=== PATIENT | female | born 1970 | race Caucasian/White ===

== ENCOUNTER 2017-11-18 06:23 | Emergency (ER) | payer BC ==
[2017-11-18] MEDS ORDERED: Sodium Chloride 0.9% 1,000 ML IV ONE (07:06)
[2017-11-18] MEDS ORDERED: Sodium Chloride 0.9% 1,000 ML ONE (07:18)
[2017-11-18 07:30] LABS: BASO % 0.3 % (0.0-2.0); EOS % 0.1 % (0.0-4.0); HEMATOCRIT 36.9 % (34.0-47.0); LYMPH # 1.4 K/uL (1.0-4.3); LYMPH % 13.5 % (20.0-40.0); MEAN CELL VOLUME 83.6 fL (81.0-99.0); MEAN CORPUSCULAR HEMOGLOBIN 28.4 pg (27.0-31.0); MEAN CORPUSCULAR HGB CONC 33.9 g/dL (33.0-37.0); MEAN PLATELET VOLUME 11.2 fL (7.2-11.7); MONO # 0.7 K/uL (0.0-0.8); MONO % 6.2 % (0.0-10.0); RED CELL DISTRIBUTION WIDTH 14.8 % (11.5-14.5); WHITE BLOOD COUNT 10.7 K/uL (4.8-10.8)
--- NOTE | 2017-11-18 07:34 | C.PDOC ---
History Of Present Illness 46 y/o female presents to ED with complaints of generalized abdominal pain since 11pm last night with associated vomiting and diarrhea. Patient states she took over the counter medication and Zantac with no relief. At ED patient reports vomiting resolved but abdominal pain and diarrhea is persistent. Abdominal pain is mild and dull. Patient denies fever, sick contacts, bloody stool, back pain or any other complaints at this time. Time Seen by Provider: 11/18/17 06:59 Chief Complaint (Nursing): Abdominal Pain History Per: Patient History/Exam Limitations: no limitations Onset/Duration Of Symptoms: Days Current Symptoms Are (Timing): Still Present Location Of Pain/Discomfort: Diffuse Past Medical History Reviewed: Historical Data, Nursing Documentation, Vital Signs Vital Signs: Last Vital Signs Temp 98.5 F 11/18/17 08:52 Pulse 77 11/18/17 08:52 Resp 16 11/18/17 08:52 BP 96/58 L 11/18/17 08:52 Pulse Ox 97 11/18/17 10:34 - Medical History PMH: Hypercholesterolemia, Migraine Surgical History: No Surg Hx - [facility] Procedures PERCUTAN NEEDLE BIOPSY OF BREAST (04/11/14) Family History: States: No Known Family Hx - Social History Hx Tobacco Use: No Hx Alcohol Use: Yes Hx Substance Use: No - Immunization History Hx Tetanus Toxoid Vaccination: Yes Hx Influenza Vaccination: Yes Hx Pneumococcal Vaccination: No Review Of Systems Constitutional: Negative for: Fever, Chills Gastrointestinal: Positive for: Vomiting, Abdominal Pain, Diarrhea. Negative for: Hematochezia, Hematemesis Musculoskeletal: Negative for: Back Pain Skin: Negative for: Rash Physical Exam - Physical Exam Appears: Non-toxic, No Acute Distress Skin: Warm, Dry, No Rash Head: Atraumatic, Normacephalic Eye(s): bilateral: Normal Inspection Oral Mucosa: Moist Neck: Supple Cardiovascular: Rhythm Regular Respiratory: Normal Breath Sounds, No Accessory Muscle Use, No Rales, No Rhonchi , No Wheezing Gastrointestinal/Abdominal: Bowel Sounds, Soft, Tenderness (Diffuse), No Mass, No Distention, No Guarding, No Rebound, No Hernia, No Ascites Back: No CVA Tenderness Extremity: Bilateral: Atraumatic, Normal Color And Temperature, Normal ROM Neurological/Psych: Oriented x3, Normal Speech Gait: Steady ED Course And Treatment - Laboratory Results Result Diagrams: 11/18/17 07:10 11/18/17 07:10 Lab Interpretation: No Acute Changes O2 Sat by Pulse Oximetry: 97 (RA) Pulse Ox Interpretation: Normal Medical Decision Making Medical Decision Making: Impression: vomiting, diarrhea, abdominal pain Plan: * Pepcid, Zofran, Toradol, UA * Blood work * Obstructive series Progress: Labs reviewed and unremarkable Obstructive series reviewed and shows normal gas pattern and no obstruction. Re-Eval time: 0846 Patient reports feeling better. IV fluids have completed. She states nausea has resolved and abdominal pain improved. Abdomen is soft without guarding or rebound tenderness. Patient has no fever and is stable for discharge. Patient given follow up instructions. Instructed to return to ER if symptoms worsen or new symptoms arise. Disposition Counseled Patient/Family Regarding: Diagnosis, Need For Followup, Rx Given - Disposition Referrals: Ranulfo Ernst MD [Medical Doctor] - Disposition: HOME/ ROUTINE Disposition Time: 08:47 Condition: STABLE Additional Instructions: Drink fluids to prevent dehydration. Take Zofran as prescribed. Try low-fat diet with increase in fluids such as sport drink, gelatin. Try soup, rice, bread , crackers, cereal, bananas to help with diarrhea. Avoid high sugar foods or drinks (soda and juice), fatty foods Follow up with your primary medical doctor or clinic in 2-5 days for further evaluation. Take medications as prescribed. Return to the emergency department at any time if symptoms persist or worsen. Prescriptions: Dicyclomine [Bentyl] 10 mg PO QID #20 cap Ondansetron ODT [Zofran ODT] 1 odt PO BID PRN #6 odt PRN Reason: Nausea/Vomiting Pantoprazole Sodium [Protonix] 20 mg PO DAILY #20 ect Instructions: Gastroenteritis (DC) Forms: [employer] (Martiniquais) Print Language: GU[place]EMALAN - POA Present On Arrival: None - Clinical Impression Clinical Impression: Gastroenteritis - PA / PROCESSING CLERK / Resident Statement MD/DO has reviewed & agrees with the documentation as recorded. - Scribe Statement The provider has reviewed the documentation as recorded by the Kelleeibyaima Lam All medical record entries made by the Kelleeibyaima were at my direction and personally dictated by me. I have reviewed the chart and agree that the record accurately reflects my personal performance of the history, physical exam, medical decision making, and the department course for this patient. I have also personally directed, reviewed, and agree with the discharge instructions and disposition.
[2017-11-18 07:35] LABS: RBC URINE 1 /hpf (0-3); URINE BACTERIA RARE (<OCC); URINE BILIRUBIN NEGATIVE (NEGATIVE); URINE BLOOD NEGATIVE (NEGATIVE); URINE COLOR Yellow (YELLOW); URINE GLUCOSE (UA) NORMAL (Normal); URINE KETONE NEGATIVE (NEGATIVE); URINE LEUKOCYTE ESTERASE NEG Leu/uL (Negative); URINE PROTEIN NEGATIVE (NEGATIVE); URINE UROBILINOGEN NORMAL mg/dL (0.2-1.0); WBC URINE 2 /hpf (0-5)
[2017-11-18 08:20] LABS: ALKALINE PHOSPHATASE 77 U/L (38-126); ALT/SGPT 29 U/L (9-52); AST/SGOT 33 U/L (14-36); BILIRUBIN,TOTAL 0.5 mg/dL (0.2-1.3); BLOOD UREA NITROGEN 17 mg/dL (7-17); CALCIUM 8.7 mg/dl (8.6-10.4); CARBON DIOXIDE 27 mmol/L (22-30); CHLORIDE 99 mmol/L (98-107); GFR AFRICAN-AMERICAN > 60; GLUCOSE,RANDOM 128 mg/dL (65-105); POTASSIUM 3.9 mmol/L (3.6-5.2); SODIUM 133 mmol/L (132-148); TOTAL PROTEIN 8.6 g/dL (6.3-8.3)
[2017-11-18 08:52] VITALS: BP 96/58; PULSE 77; RESP 16; TEMP 98.5
[2017-11-18 10:34] VITALS: O2SAT 97
--- NOTE | 2017-11-18 11:22 | RAD ---
PROCEDURE: Radiographs of the chest and abdomen (obstructive series) HISTORY: Abdominal pain, vomiting and diarrhea COMPARISON: No prior. TECHNIQUE: AP radiograph of the chest, with upright and supine radiographs of the abdomen. FINDINGS: CHEST: Lungs: The lungs are well inflated and clear. Cardiovascular: Normal size heart. No pulmonary vascular congestion. Pleura: No pleural fluid. No pneumothorax. Other findings: None. ABDOMEN AND PELVIS: Bowel: The bowel gas pattern is nonspecific. There are no air-fluid levels. No evidence of mechanical obstruction. Free air: None. Bones: Unremarkable. Other findings: None. IMPRESSION: Nonobstructive bowel-gas pattern. Clear lungs.
== END 2017-11-18 09:12 | disposition home or self-care (01) ==
LOC: C.ER 06:23
DX: K52.9 Noninfective gastroenteritis and colitis, unspecified (principal); E78.00 Pure hypercholesterolemia, unspecified
CPT/HCPCS: 74022; 80053; 81001; 83690; 84703; 85025; 87086; 96361; 96374; 96375; 99285; J1885; J2405; J7040

== ENCOUNTER 2018-05-17 00:15 | Inpatient (IN) | payer BC, MEDICAID ==
[2018-05-17] MEDS ORDERED: Sodium Chloride 0.9% 500 ML IV ONE ×2 (01:04→01:23)
[2018-05-17] MEDS ORDERED: Sodium Chloride 0.9% 1,000 ML IV ONE (01:04)
[2018-05-17] MEDS ORDERED: Iohexol 240 (50 ml) PO ONE (01:05)
--- NOTE | 2018-05-17 01:07 | C.PDOC ---
History Of Present Illness 47 year old female presents to the ER with a complaint of abdominal pain that began at 20:00, associated with diarrhea. Denies nausea, vomiting, dysuria, or hematuria. Chief Complaint (Nursing): Abdominal Pain History Per: Patient History/Exam Limitations: no limitations Onset/Duration Of Symptoms: Hrs Current Symptoms Are (Timing): Still Present Location Of Pain/Discomfort: RUQ, RLQ, LUQ Radiation Of Pain To:: None Quality Of Discomfort: Unable To Describe Associated Symptoms: Diarrhea. denies: Nausea, Vomiting Exacerbating Factors: None Alleviating Factors: None Recent travel outside of the [place]: No Abnormal Vaginal Bleeding: No Past Medical History Reviewed: Historical Data, Nursing Documentation, Vital Signs Vital Signs: Last Vital Signs Temp 97.8 F 05/17/18 05:21 Pulse 91 H 05/17/18 05:21 Resp 16 05/17/18 05:21 BP 149/86 05/17/18 05:21 Pulse Ox 99 05/17/18 05:23 - Medical History PMH: Hypercholesterolemia, Migraine - [facility] Procedures PERCUTAN NEEDLE BIOPSY OF BREAST (04/11/14) Family History: States: Unknown Family Hx - Social History Hx Tobacco Use: No Hx Alcohol Use: Yes Hx Substance Use: No - Immunization History Hx Tetanus Toxoid Vaccination: Yes Hx Influenza Vaccination: Yes Hx Pneumococcal Vaccination: No Review Of Systems Constitutional: Negative for: Fever, Chills Cardiovascular: Negative for: Chest Pain, Palpitations Respiratory: Negative for: Cough, Shortness of Breath Gastrointestinal: Positive for: Abdominal Pain, Diarrhea. Negative for: Nausea , Vomiting Genitourinary: Negative for: Dysuria, Hematuria Physical Exam - Physical Exam Appears: Non-toxic Skin: Normal Color, Warm, Dry Head: Atraumatic, Normacephalic Eye(s): bilateral: Normal Inspection Oral Mucosa: Moist Neck: Normal, Supple Chest: Symmetrical, No Tenderness Cardiovascular: Rhythm Regular Respiratory: Normal Breath Sounds, No Rales, No Rhonchi, No Wheezing Gastrointestinal/Abdominal: Soft, Tenderness (Bilateral upper quadrants and RLQ) , No Guarding, No Rebound Back: No CVA Tenderness Neurological/Psych: Oriented x3, Normal Speech ED Course And Treatment - Laboratory Results Result Diagrams: 05/17/18 01:17 05/17/18 01:17 O2 Sat by Pulse Oximetry: 99 (Room air) Pulse Ox Interpretation: Normal Progress Note: CT abd/pel, blood work, and urinalysis ordered. Bentyl, IV fluids , and toradol administered. NG tube inserted. Disposition Discussed With : Sanjeev Deras Doctor Will See Patient In The: Hospital Counseled Patient/Family Regarding: Diagnosis - Disposition Disposition: HOSPITALIZED Disposition Time: 05:16 Condition: STABLE - POA Present On Arrival: None - Clinical Impression Clinical Impression: Abdominal pain, Small bowel obstruction - Scribe Statement The provider has reviewed the documentation as recorded by the Scribyaima Aguilar All medical record entries made by the Kelleeibyaima were at my direction and personally dictated by me. I have reviewed the chart and agree that the record accurately reflects my personal performance of the history, physical exam, medical decision making, and the department course for this patient. I have also personally directed, reviewed, and agree with the discharge instructions and disposition.
[2018-05-17 01:24] LABS: BASO % 0.4 % (0.0-2.0); EOS % 0.3 % (0.0-4.0); HEMOGLOBIN 12.3 g/dL (11.0-16.0); LYMPH # 1.8 K/uL (1.0-4.3); LYMPH % 15.5 % (20.0-40.0); MEAN CELL VOLUME 82.6 fL (81.0-99.0); MEAN CORPUSCULAR HEMOGLOBIN 27.4 pg (27.0-31.0); MEAN CORPUSCULAR HGB CONC 33.2 g/dL (33.0-37.0); MEAN PLATELET VOLUME 10.5 fL (7.2-11.7); MONO # 0.5 K/uL (0.0-0.8); MONO % 4.7 % (0.0-10.0); NEUT # 9.1 K/uL (1.8-7.0); NEUT % 79.1 % (50.0-75.0); RBC 4.48 Mil/uL (3.80-5.20); RED CELL DISTRIBUTION WIDTH 15.4 % (11.5-14.5); WHITE BLOOD COUNT 11.5 K/uL (4.8-10.8)
[2018-05-17 01:33] LABS: ALB/GLOB RATIO 1.4 (1.0-2.1); ALBUMIN 4.5 g/dL (3.5-5.0); ALT/SGPT 35 U/L (9-52); AST/SGOT 21 U/L (14-36); BLOOD UREA NITROGEN 14 mg/dL (7-17); CALCIUM 9.2 mg/dl (8.6-10.4); GFR AFRICAN-AMERICAN > 60; GFR NON-AFRICAN AMERICAN > 60; LIPASE 104 U/L (23-300)
[2018-05-17 01:37] LABS: SQUAMOUS EPITHIAL 1 /hpf (0-5); URINE BILIRUBIN NEGATIVE (NEGATIVE); URINE BLOOD NEGATIVE (NEGATIVE); URINE CLARITY Clear (Clear); URINE COLOR Yellow (YELLOW); URINE GLUCOSE (UA) NORMAL (Normal); URINE LEUKOCYTE ESTERASE NEG Leu/uL (Negative); URINE PROTEIN NEGATIVE (NEGATIVE); URINE UROBILINOGEN NORMAL mg/dL (0.2-1.0)
[2018-05-17] MEDS ORDERED: Iodixanol 320 MG/ML 100 ML BOTTLE IV ONE (02:46)
--- NOTE | 2018-05-17 05:23 | CP.PCM.HP ---
<Rolando Harper Elsa - Last Filed: 05/17/18 06:16> Meds Allergies/Adverse Reactions: Allergies Allergy/AdvReac Type Severity Reaction Status Date / Time No Known Allergies Allergy Verified 11/18/17 06:40 Results - Vital Signs Recent Vital Signs: Last Vital Signs Temp 97.8 F 05/17/18 05:21 Pulse 91 H 05/17/18 05:21 Resp 16 05/17/18 05:21 BP 149/86 05/17/18 05:21 Pulse Ox 99 05/17/18 06:01 - Labs Result Diagrams: 05/17/18 01:17 05/17/18 01:17 Labs: Laboratory Results - last 24 hr 05/17/18 05/17/18 05/17/18 01:17 01:17 01:30 WBC 11.5 H RBC 4.48 Hgb 12.3 Hct 37.0 MCV 82.6 MCH 27.4 MCHC 33.2 RDW 15.4 H Plt Count 220 MPV 10.5 Neut % (Auto) 79.1 H Lymph % (Auto) 15.5 L [place] % (Auto) 4.7 Eos % (Auto) 0.3 Baso % (Auto) 0.4 Neut # (Auto) 9.1 H Lymph # (Auto) 1.8 [place] # (Auto) 0.5 Eos # (Auto) 0.0 Baso # (Auto) 0.0 Sodium 139 Potassium 4.3 Chloride 103 Carbon Dioxide 21 L Anion Gap 19 BUN 14 Creatinine 0.7 Est GFR ( Amer) > 60 Est GFR (Non-Af Amer) > 60 POC Glucose (mg/dL) Random Glucose 116 H Calcium 9.2 Total Bilirubin 0.7 AST 21 ALT 35 Alkaline Phosphatase 76 Total Protein 7.8 Albumin 4.5 Globulin 3.3 Albumin/Globulin Ratio 1.4 Lipase 104 Urine Color Yellow Urine Clarity Clear Urine pH 5.0 Ur Specific [place] 1.023 Urine Protein Negative Urine Glucose (UA) Normal Urine Ketones Negative Urine Blood Negative Urine Nitrate Negative Urine Bilirubin Negative Urine Urobilinogen Normal Ur Leukocyte Esterase Neg Urine WBC (Auto) < 1 Urine RBC (Auto) < 1 Ur Squamous Epith Cells 1 05/17/18 05:55 WBC RBC Hgb Hct MCV MCH MCHC RDW Plt Count MPV Neut % (Auto) Lymph % (Auto) [place] % (Auto) Eos % (Auto) Baso % (Auto) Neut # (Auto) Lymph # (Auto) [place] # (Auto) Eos # (Auto) Baso # (Auto) Sodium Potassium Chloride Carbon Dioxide Anion Gap BUN Creatinine Est GFR ( Amer) Est GFR (Non-Af Amer) POC Glucose (mg/dL) 112 H Random Glucose Calcium Total Bilirubin AST ALT Alkaline Phosphatase Total Protein Albumin Globulin Albumin/Globulin Ratio Lipase Urine Color Urine Clarity Urine pH Ur Specific [place] Urine Protein Urine Glucose (UA) Urine Ketones Urine Blood Urine Nitrate Urine Bilirubin Urine Urobilinogen Ur Leukocyte Esterase Urine WBC (Auto) Urine RBC (Auto) Ur Squamous Epith Cells <Mari HuitronAna Paula - Last Filed: 05/17/18 07:09> History of Present Illness - History of Present Illness History of Present Illness: CC: "lower abdominal pain" HPI: 47 year old female with past medical history of pre-diabetes and HLD presents to the ER for lower abdominal pain. She states the pain started yesterday around 8pm while she was cleaning her bathroom. She stated the pain felt like a cramping pain which would come and go. She states she drank water with lemon and a tablet of penicillin hoping the pain would go away. She states when the pain would not leave and became more severe she decided to come to the ER which she was brought in by her . Patient states she had about 4 small episodes of diarrhea yesterday evening the last one being at 11pm. She states the stool was liquid and yellow/green in color and very small amounts. She states the last time she ate anything was yesterday around 3:45pm which was rice/avocado/broccoli. She states she has never had pain like this before. Patient states she is belching but is not passing flatus. She denies nausea, vomiting, chills, fever, shortness of breath or chest pain. Patient states she has had a colonoscopy in the past about 10 years ago due to constipation and external hemorrhoids were found otherwise colonoscopy was normal per patient. PMD: Dr. 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 Social drinker. Present on Admission - Present on Admission Any Indicators Present on Admission: No Review of Systems - Constitutional Constitutional: Fever. absent: Chills - Cardiovascular Cardiovascular: absent: Chest Pain, Dyspnea, Leg Edema, Palpitations - Respiratory Respiratory: absent: Dyspnea - Gastrointestinal Gastrointestinal: Diarrhea. absent: Constipation, Nausea, Vomiting - Genitourinary Genitourinary: absent: Dysuria - Musculoskeletal Musculoskeletal: absent: Numbness, Tingling - Neurological Neurological: absent: Dizziness, Headaches Past Patient History - Past Social History Smoking Status: Never Smoked - CARDIAC Hx Hypercholesterolemia: Yes - NEUROLOGICAL Hx Migraine: Yes - ENDOCRINE/METABOLIC Hx Diabetes Mellitus Type 2: Yes - PSYCHIATRIC Hx Substance Use: No - SURGICAL HISTORY Hx Surgeries: Yes Hx Section: Yes (X2) Hx Hysterectomy: Yes Physical Exam - Constitutional Appears: No Acute Distress - Head Exam Head Exam: ATRAUMATIC, NORMAL INSPECTION - Eye Exam Eye Exam: EOMI, Normal appearance, PERRL Pupil Exam: NORMAL ACCOMODATION - ENT Exam ENT Exam: Mucous Membranes Dry - Respiratory Exam Respiratory Exam: Clear to Auscultation Bilateral, NORMAL BREATHING PATTERN - Cardiovascular Exam Cardiovascular Exam: REGULAR RHYTHM, +S1, +S2 - GI/Abdominal Exam GI & Abdominal Exam: Hyperactive Bowel Sounds, Soft. absent: Distended, Firm, Tenderness - Extremities Exam Extremities exam: Positive for: normal capillary refill, normal inspection, pedal pulses present. Negative for: pedal edema, tenderness - Neurological Exam Neurological exam: Alert, Oriented x3 - Psychiatric Exam Psychiatric exam: Normal Affect, Normal Mood - Skin Skin Exam: Normal Color Results - Vital Signs Recent Vital Signs: Last Vital Signs Temp 97.8 F 05/17/18 05:21 Pulse 91 H 05/17/18 05:21 Resp 16 05/17/18 05:21 BP 149/86 05/17/18 05:21 Pulse Ox 100 05/17/18 05:21 - Labs Result Diagrams: 05/17/18 01:17 05/17/18 01:17 Labs: Laboratory Results - last 24 hr 05/17/18 05/17/18 05/17/18 01:17 01:17 01:30 WBC 11.5 H RBC 4.48 Hgb 12.3 Hct 37.0 MCV 82.6 MCH 27.4 MCHC 33.2 RDW 15.4 H Plt Count 220 MPV 10.5 Neut % (Auto) 79.1 H Lymph % (Auto) 15.5 L [place] % (Auto) 4.7 Eos % (Auto) 0.3 Baso % (Auto) 0.4 Neut # (Auto) 9.1 H Lymph # (Auto) 1.8 [place] # (Auto) 0.5 Eos # (Auto) 0.0 Baso # (Auto) 0.0 Sodium 139 Potassium 4.3 Chloride 103 Carbon Dioxide 21 L Anion Gap 19 BUN 14 Creatinine 0.7 Est GFR ( Amer) > 60 Est GFR (Non-Af Amer) > 60 Random Glucose 116 H Calcium 9.2 Total Bilirubin 0.7 AST 21 ALT 35 Alkaline Phosphatase 76 Total Protein 7.8 Albumin 4.5 Globulin 3.3 Albumin/Globulin Ratio 1.4 Lipase 104 Urine Color Yellow Urine Clarity Clear Urine pH 5.0 Ur Specific [place] 1.023 Urine Protein Negative Urine Glucose (UA) Normal Urine Ketones Negative Urine Blood Negative Urine Nitrate Negative Urine Bilirubin Negative Urine Urobilinogen Normal Ur Leukocyte Esterase Neg Urine WBC (Auto) < 1 Urine RBC (Auto) < 1 Ur Squamous Epith Cells 1 Assessment & Plan - Assessment and Plan (Free Text) Assessment: Small Bowel Obstruction - NG tube in place - NPO - Surgery Consult: Dr. Pulliam --> help appreciated - CT abd/pelvis: f/u final report - LR @100cc/hr - Zofran 4mg IV q6prn - Protonix 40mg q12h History of Pre Diabetes - f/u hA1c - Home medication Metformin - hold - ISS low dose - Accuchecks - Hypoglycemia protocol History of HLD - f/u lipid panel - Statin home medication on hold - patient is NPO Prophylaxis - SCDs - Protonix 40mg q12h Case discussed with Dr. Braeden Huitron PGY-2 <Sanjeev Deras - Last Filed: 05/17/18 09:14> Results - Vital Signs Recent Vital Signs: Last Vital Signs Temp 97.7 F 05/17/18 07:00 Pulse 74 05/17/18 07:00 Resp 20 05/17/18 07:00 BP 112/75 05/17/18 07:00 Pulse Ox 98 05/17/18 07:00 - Labs Result Diagrams: 05/17/18 01:17 05/17/18 01:17 Labs: Laboratory Results - last 24 hr 05/17/18 05/17/18 05/17/18 01:17 01:17 01:30 WBC 11.5 H RBC 4.48 Hgb 12.3 Hct 37.0 MCV 82.6 MCH 27.4 MCHC 33.2 RDW 15.4 H Plt Count 220 MPV 10.5 Neut % (Auto) 79.1 H Lymph % (Auto) 15.5 L [place] % (Auto) 4.7 Eos % (Auto) 0.3 Baso % (Auto) 0.4 Neut # (Auto) 9.1 H Lymph # (Auto) 1.8 [place] # (Auto) 0.5 Eos # (Auto) 0.0 Baso # (Auto) 0.0 Sodium 139 Potassium 4.3 Chloride 103 Carbon Dioxide 21 L Anion Gap 19 BUN 14 Creatinine 0.7 Est GFR ( Amer) > 60 Est GFR (Non-Af Amer) > 60 POC Glucose (mg/dL) Random Glucose 116 H Calcium 9.2 Total Bilirubin 0.7 AST 21 ALT 35 Alkaline Phosphatase 76 Total Protein 7.8 Albumin 4.5 Globulin 3.3 Albumin/Globulin Ratio 1.4 Lipase 104 Urine Color Yellow Urine Clarity Clear Urine pH 5.0 Ur Specific [place] 1.023 Urine Protein Negative Urine Glucose (UA) Normal Urine Ketones Negative Urine Blood Negative Urine Nitrate Negative Urine Bilirubin Negative Urine Urobilinogen Normal Ur Leukocyte Esterase Neg Urine WBC (Auto) < 1 Urine RBC (Auto) < 1 Ur Squamous Epith Cells 1 Urine HCG, Qual 05/17/18 05/17/18 05/17/18 05:55 06:37 07:25 WBC RBC Hgb Hct MCV MCH MCHC RDW Plt Count MPV Neut % (Auto) Lymph % (Auto) [place] % (Auto) Eos % (Auto) Baso % (Auto) Neut # (Auto) Lymph # (Auto) [place] # (Auto) Eos # (Auto) Baso # (Auto) Sodium Potassium Chloride Carbon Dioxide Anion Gap BUN Creatinine Est GFR ( Amer) Est GFR (Non-Af Amer) POC Glucose (mg/dL) 112 H 94 Random Glucose Calcium Total Bilirubin AST ALT Alkaline Phosphatase Total Protein Albumin Globulin Albumin/Globulin Ratio Lipase Urine Color Urine Clarity Urine pH Ur Specific [place] Urine Protein Urine Glucose (UA) Urine Ketones Urine Blood Urine Nitrate Urine Bilirubin Urine Urobilinogen Ur Leukocyte Esterase Urine WBC (Auto) Urine RBC (Auto) Ur Squamous Epith Cells Urine HCG, Qual Negative Attending/Attestation - Attestation I have personally seen and examined this patient.: Yes I have fully participated in the care of the patient.: Yes I have reviewed all pertinent clinical information: Yes Notes (Text): 05/17/18 09:01 I saw and examined this patient shoulder to shoulder with Dr Huitron. the assessment and plan outlined , indicate my direct input. This is a 37 years old female with hx of hysterectomy and Cesarian section X2, comes with worsening colicky abdominal pain associated with five episodes of small diarrhea bowel movement. A&P #. SBO CT abdomen/Pelvis- partial SBO - Consult Surgery - NPO - NG tube -IV Fluids - Protonix - zofran - Abdomen X ray erect and supine follow up #. Diabetes II - Hold Metformin because of contrast Dye use in CT abdomen -Regular Insulin sliding scale according to accucheck #. DVT prophylaxis with SCD #. Code Status: Full
[2018-05-17] MEDS ORDERED: Glucagon Recombinant 1 mg Inj IM PRN (06:07)
[2018-05-17] MEDS ORDERED: Dextrose 50% SYRINGE Inj (50 ml) IV PRN (06:07)
[2018-05-17] MEDS: Lactated Ringer's 1,000 ML IV SCH ×2 (06:41→16:40)
[2018-05-17 06:54] VITALS: RESP 20
[2018-05-17] MEDS: (Novolin R) Insulin Human Regular 100 units/ml vial SC SCH ×4 (08:48→22:18)
[2018-05-17 09:34] LABS: HDL CHOLESTEROL 39 mg/dL (30-70)
[2018-05-17 09:45] LABS: LDL CHOLESTEROL 85 mg/dL (0-129)
--- NOTE | 2018-05-17 12:43 | CT ---
PROCEDURE: CT Abdomen and Pelvis with contrast HISTORY: upper abd and Right lower quadrant abdominal pain COMPARISON: None. TECHNIQUE: Contrast dose: Visipaque 320, 100 cc Radiation dose: Total exam DLP = 1116.11 mGy-cm. This CT exam was performed using one or more of the following dose reduction techniques: Automated exposure control, adjustment of the mA and/or kV according to patient size, and/or use of iterative reconstruction technique. FINDINGS: LOWER THORAX: No definite findings although restaurant most motion artifacts limit lung base segment of exam significantly. LIVER: Unremarkable. No gross lesion or ductal dilatation. GALLBLADDER AND BILE DUCTS: Unremarkable. PANCREAS: Unremarkable. No gross lesion or ductal dilatation. SPLEEN: Unremarkable. ADRENALS: Unremarkable. No mass. KIDNEYS AND URETERS: Unremarkable. No hydronephrosis. No solid mass. VASCULATURE: Unremarkable. No aortic aneurysm. BOWEL: The stomach is unremarkable. The bowel is not appear obstructed. Descending colon and sigmoid segment are decompressed limiting evaluation wall with remainder the bowel patel unremarkable. No colonic diverticular changes. Diminishing caliber of ileum is identified with incomplete oral contrast opacification small-bowel at this time. Pattern is nonspecific. Small-bowel obstruction not been proven yet. APPENDIX: Normal appendix. PERITONEUM: Unremarkable. No free fluid. No free air. There is diastasis of the inferior rectus abdominis musculature without definite ventral abdominal hernia appreciated at this time. LYMPH NODES: Unremarkable. No enlarged lymph nodes. BLADDER: Unremarkable. REPRODUCTIVE: Prior hysterectomy suggested. BONES: No acute fracture. OTHER FINDINGS: None. IMPRESSION: Nonspecific small bowel pattern with gradually diminishing caliber of distal small bowel. Small bowel obstruction is not definitively shown. [facility] preliminary interpretation (05/17/2018) suggests potentially early distal small bowel obstruction, however, then follow-up abdomen radiograph for abdomen pelvis CT can be performed to better evaluate transit of distal small bowel oral contrast. A definitive transition point in caliber of small bowel is not identified although the transition from opacify to under opacified small bowel is appreciated but is gradual. Please see V rad preliminary interpretation also stored in PACs. Prior hysterectomy suggested. Clinically correlate. Diastasis of inferior abdominus rectus musculature.
--- NOTE | 2018-05-17 13:44 | RAD ---
HISTORY: SBO, Contrast level COMPARISON: No prior. FINDINGS: BOWEL: No evidence of bowel obstruction. Oral contrast throughout colon. Nasogastric tube in upper abdomen. No hepatic or splenic enlargement. No masses or abnormal calcifications. BONES: Normal. OTHER FINDINGS: None. IMPRESSION: No evidence of mechanical bowel obstruction.
--- NOTE | 2018-05-17 13:47 | RAD ---
HISTORY: NGT Placement COMPARISON: No prior. FINDINGS: LUNGS: No active pulmonary disease. PLEURA: No significant pleural effusion identified, no pneumothorax apparent. CARDIOVASCULAR: Normal heart size. Nasogastric tube extends to upper abdomen. OSSEOUS STRUCTURES: No significant abnormalities. VISUALIZED UPPER ABDOMEN: Normal. OTHER FINDINGS: None. IMPRESSION: No active disease. Nasogastric tube appropriately positioned.
--- NOTE | 2018-05-17 14:33 | CP.PCM.CON ---
History of Present Illness - History of Present Illness History of Present Illness: SURGERY CONSULT NOTE FOR DR. FOUNTAIN 47F presented to [facility] with abdominal pain. Upon evaluation patient symptoms have resolved. Patient states she no longer had abdominal pain, denies nausea and vomiting, patient denies fevers or chills. She states she has been passing gas also. Denies bowel movement while in hospital but had diarrhea at home. Past Medical History: pre-diabetes and HLD Past Surgical History: C-sections (1993 and 1999); Hysterectomy - 2008 Allergies: NKDA Past Patient History - Past Medical History & Family History Past Medical History?: Yes - Past Social History Smoking Status: Never Smoked - CARDIAC Hx Hypercholesterolemia: Yes - PULMONARY Hx Respiratory Disorders: No - NEUROLOGICAL Hx Migraine: Yes - RENAL Hx Chronic Kidney Disease: No - ENDOCRINE/METABOLIC Hx Diabetes Mellitus Type 2: Yes - HEMATOLOGICAL/ONCOLOGICAL Hx Blood Disorders: No - INTEGUMENTARY Hx Dermatological Problems: No - MUSCULOSKELETAL/RHEUMATOLOGICAL Hx Musculoskeletal Disorders: No Hx Falls: No - GASTROINTESTINAL Hx Gastrointestinal Disorders: No - GENITOURINARY/GYNECOLOGICAL Hx Genitourinary Disorders: No - PSYCHIATRIC Hx Substance Use: No - SURGICAL HISTORY Hx Surgeries: Yes Hx Section: Yes (X2) Hx Hysterectomy: Yes - ANESTHESIA Hx Anesthesia: Yes Hx Anesthesia Reactions: No Hx Malignant Hyperthermia: Yes Has any member of the family had a problem w/ anesthesia?: No Meds Allergies/Adverse Reactions: Allergies Allergy/AdvReac Type Severity Reaction Status Date / Time No Known Allergies Allergy Verified 11/18/17 06:40 - Medications Medications: Current Medications Dextrose (Dextrose 50% Inj) 0 ml IV STAT PRN; Protocol PRN Reason: Hypoglycemia Protocol Dextrose (Glutose 15) 0 gm PO ONCE PRN; Protocol PRN Reason: Hypoglycemia Protocol Glucagon (Glucagen Diagnostic Kit) 0 mg IM STAT PRN; Protocol PRN Reason: Hypoglycemia Protocol Lactated Ringer's (Lactated Ringer's) 1,000 mls @ 100 mls/hr IV .Q10H [facility] Last Admin: 05/17/18 06:41 Dose: 100 mls/hr Dextrose (Dextrose 5% In Water 1000 Ml) 1,000 mls @ 0 mls/hr IV .Q0M PRN; Protocol; Per Protocol PRN Reason: Hypoglycemia Protocol Insulin Human Regular (Novolin R) 0 unit SC ACHS [facility] PRN Reason: Protocol Last Admin: 05/17/18 12:22 Dose: Not Given Ondansetron HCl (Zofran Inj) 4 mg IVP Q6 PRN PRN Reason: Nausea/Vomiting Pantoprazole Sodium (Protonix Inj) 40 mg IVP DAILY [facility] Pneumococcal Polyvalent Vaccine (Pneumovax 23 Vaccine) 0.5 ml IM .ONCE ONE Stop: 05/20/18 10:01 Physical Exam - Constitutional Appears: Non-toxic, No Acute Distress - ENT Exam ENT Exam: Mucous Membranes Moist - Respiratory Exam Respiratory Exam: Clear to Auscultation Bilateral, NORMAL BREATHING PATTERN - Cardiovascular Exam Cardiovascular Exam: REGULAR RHYTHM, +S1, +S2 - GI/Abdominal Exam GI & Abdominal Exam: Soft. absent: Distended, Firm, Guarding, Rebound, Rigid, Tenderness Additional comments: NGT clamped - Extremities Exam Extremities exam: Negative for: pedal edema, tenderness - Neurological Exam Neurological exam: Alert, Oriented x3 - Psychiatric Exam Psychiatric exam: Normal Affect, Normal Mood - Skin Skin Exam: Dry, Intact, Normal Color, Warm Results - Vital Signs Recent Vital Signs: Last Vital Signs Temp 97.7 F 05/17/18 07:00 Pulse 74 05/17/18 07:00 Resp 20 05/17/18 07:00 BP 112/75 05/17/18 07:00 Pulse Ox 98 05/17/18 07:00 - Labs Result Diagrams: 05/17/18 01:17 05/17/18 01:17 Labs: Laboratory Results - last 24 hr 05/17/18 05/17/18 05/17/18 01:17 01:17 01:30 WBC 11.5 H RBC 4.48 Hgb 12.3 Hct 37.0 MCV 82.6 MCH 27.4 MCHC 33.2 RDW 15.4 H Plt Count 220 MPV 10.5 Neut % (Auto) 79.1 H Lymph % (Auto) 15.[address] [place] % (Auto) 4.7 Eos % (Auto) 0.3 Baso % (Auto) 0.4 Neut # (Auto) 9.1 H Lymph # (Auto) 1.8 [place] # (Auto) 0.5 Eos # (Auto) 0.0 Baso # (Auto) 0.0 Sodium 139 Potassium 4.3 Chloride 103 Carbon Dioxide 21 L Anion Gap 19 BUN 14 Creatinine 0.7 Est GFR ( Amer) > 60 Est GFR (Non-Af Amer) > 60 POC Glucose (mg/dL) Random Glucose 116 H Hemoglobin A1c Calcium 9.2 Total Bilirubin 0.7 AST 21 ALT 35 Alkaline Phosphatase 76 Total Protein 7.8 Albumin 4.5 Globulin 3.3 Albumin/Globulin Ratio 1.4 Triglycerides 142 Cholesterol 180 LDL Cholesterol Direct 85 HDL Cholesterol 39 Lipase 104 Urine Color Yellow Urine Clarity Clear Urine pH 5.0 Ur Specific [place] 1.023 Urine Protein Negative Urine Glucose (UA) Normal Urine Ketones Negative Urine Blood Negative Urine Nitrate Negative Urine Bilirubin Negative Urine Urobilinogen Normal Ur Leukocyte Esterase Neg Urine WBC (Auto) < 1 Urine RBC (Auto) < 1 Ur Squamous Epith Cells 1 Urine HCG, Qual 05/17/18 05/17/18 05/17/18 05:55 06:37 07:25 WBC RBC Hgb Hct MCV MCH MCHC RDW Plt Count MPV Neut % (Auto) Lymph % (Auto) [place] % (Auto) Eos % (Auto) Baso % (Auto) Neut # (Auto) Lymph # (Auto) [place] # (Auto) Eos # (Auto) Baso # (Auto) Sodium Potassium Chloride Carbon Dioxide Anion Gap BUN Creatinine Est GFR ( Amer) Est GFR (Non-Af Amer) POC Glucose (mg/dL) 112 H 94 Random Glucose Hemoglobin A1c Calcium Total Bilirubin AST ALT Alkaline Phosphatase Total Protein Albumin Globulin Albumin/Globulin Ratio Triglycerides Cholesterol LDL Cholesterol Direct HDL Cholesterol Lipase Urine Color Urine Clarity Urine pH Ur Specific [place] Urine Protein Urine Glucose (UA) Urine Ketones Urine Blood Urine Nitrate Urine Bilirubin Urine Urobilinogen Ur Leukocyte Esterase Urine WBC (Auto) Urine RBC (Auto) Ur Squamous Epith Cells Urine HCG, Qual Negative 05/17/18 05/17/18 09:27 12:21 WBC RBC Hgb Hct MCV MCH MCHC RDW Plt Count MPV Neut % (Auto) Lymph % (Auto) [place] % (Auto) Eos % (Auto) Baso % (Auto) Neut # (Auto) Lymph # (Auto) [place] # (Auto) Eos # (Auto) Baso # (Auto) Sodium Potassium Chloride Carbon Dioxide Anion Gap BUN Creatinine Est GFR ( Amer) Est GFR (Non-Af Amer) POC Glucose (mg/dL) 88 Random Glucose Hemoglobin A1c 6.2 Calcium Total Bilirubin AST ALT Alkaline Phosphatase Total Protein Albumin Globulin Albumin/Globulin Ratio Triglycerides Cholesterol LDL Cholesterol Direct HDL Cholesterol Lipase Urine Color Urine Clarity Urine pH Ur Specific [place] Urine Protein Urine Glucose (UA) Urine Ketones Urine Blood Urine Nitrate Urine Bilirubin Urine Urobilinogen Ur Leukocyte Esterase Urine WBC (Auto) Urine RBC (Auto) Ur Squamous Epith Cells Urine HCG, Qual Assessment & Plan - Assessment and Plan (Free Text) Assessment: 47F with resolved abdominal pain, likely mild enteritis Abx X-ray - No obstruction, contrast in colon Plan: Adv diet to regular NGT removed Clear for DC once tolerating PO diet Discussed with Dr. Heraclio Gamez, PGY2
--- NOTE | 2018-05-17 17:55 | CP.PCM.PN ---
<HannaMer slaugtherlashawn E - Last Filed: 05/17/18 17:52> Subjective - Date & Time of Evaluation Date of Evaluation: 05/17/18 Time of Evaluation: 07:40 - Subjective Subjective: Medicine progress note ( Dr. Barclay's service) Patient was seen and examined at bedside with NGT in place. Patient reports that she is doing well. Patient denies fever, chills, nausea, vomiting, abdominal pain. Patient admits to belching. Objective - Vital Signs/Intake and Output Vital Signs (last 24 hours): Temp Pulse Resp BP Pulse Ox 98.0 F 66 20 108/71 96 05/17/18 15:00 05/17/18 15:00 05/17/18 15:00 05/17/18 15:00 05/17/18 15:00 Intake and Output: 05/17/18 05/17/18 06:59 18:59 Intake Total 60 800 Output Total 300 20 Balance -240 780 - Medications Medications: Current Medications Dextrose (Dextrose 50% Inj) 0 ml IV STAT PRN; Protocol PRN Reason: Hypoglycemia Protocol Dextrose (Glutose 15) 0 gm PO ONCE PRN; Protocol PRN Reason: Hypoglycemia Protocol Glucagon (Glucagen Diagnostic Kit) 0 mg IM STAT PRN; Protocol PRN Reason: Hypoglycemia Protocol Lactated Ringer's (Lactated Ringer's) 1,000 mls @ 100 mls/hr IV .Q10H [facility] Last Admin: 05/17/18 16:40 Dose: 100 mls/hr Dextrose (Dextrose 5% In Water 1000 Ml) 1,000 mls @ 0 mls/hr IV .Q0M PRN; Protocol; Per Protocol PRN Reason: Hypoglycemia Protocol Insulin Human Regular (Novolin R) 0 unit SC ACHS [facility] PRN Reason: Protocol Last Admin: 05/17/18 16:43 Dose: Not Given Ondansetron HCl (Zofran Inj) 4 mg IVP Q6 PRN PRN Reason: Nausea/Vomiting Pantoprazole Sodium (Protonix Inj) 40 mg IVP DAILY [facility] Pneumococcal Polyvalent Vaccine (Pneumovax 23 Vaccine) 0.5 ml IM .ONCE ONE Stop: 05/20/18 10:01 - Labs Labs: 05/17/18 01:17 05/17/18 01:17 - Constitutional Appears: Well, No Acute Distress - Head Exam Head Exam: ATRAUMATIC, NORMAL INSPECTION - Eye Exam Eye Exam: EOMI, Normal appearance - ENT Exam ENT Exam: Mucous Membranes Moist - Respiratory Exam Respiratory Exam: Clear to Ausculation Bilateral, Rhonchi, NORMAL BREATHING PATTERN. absent: Prolonged Expiratory Phase, Wheezes, Respiratory Distress - Cardiovascular Exam Cardiovascular Exam: REGULAR RHYTHM, +S1, +S2. absent: Murmur - GI/Abdominal Exam GI & Abdominal Exam: Soft, Normal Bowel Sounds. absent: Distended, Firm, Guarding, Rigid, Tenderness - Extremities Exam Extremities Exam: Normal Inspection - Neurological Exam Neurological Exam: Alert, Awake, Oriented x3 - Psychiatric Exam Psychiatric exam: Normal Affect - Skin Skin Exam: Normal Color Assessment and Plan (1) Small bowel obstruction Assessment & Plan: Surgical consult, Dr. Esparza * Management as per recommendation: NGT removed, Advance diet to regular, Clear for DC once tolerating PO diet CT abdomen/Pelvis: Partial SBO, please refer to the EMR for complete impression Abdominal X-ray: No evidence of mechanical bowel obstruction \ Continue to monitor for BM and Flatus Medication: * Zofran 4mg IV Q6H PRN for nausea Status: Acute (2) Glucose intolerance (impaired glucose tolerance) Assessment & Plan: HbgA1C: 6.2 * Home medication Metformin 1,000mg PO daily - hold * ISS low dose * Accuchecks * Hypoglycemia protocol Status: Acute (3) Hyperlipidemia Assessment & Plan: Lipid panel: TGL: 142, Chol: 180, LDL: 85 and HDL: 39 Status: Acute (4) Prophylactic measure Assessment & Plan: DVT: SCDs GI: Protonix 40mg IV Q12H All management discussed with Dr. Barclay Status: Acute <Radha Barclay V - Last Filed: 05/18/18 22:11> Objective - Vital Signs/Intake and Output Vital Signs (last 24 hours): Temp Pulse Resp BP Pulse Ox 98 F 68 20 102/66 100 05/18/18 08:00 05/18/18 08:00 05/18/18 08:00 05/18/18 08:00 05/18/18 08:00 - Labs Labs: 05/18/18 06:29 05/18/18 06:29 Attending/Attestation - Attestation I have personally seen and examined this patient.: Yes I have fully participated in the care of the patient.: Yes I have reviewed all pertinent clinical information, including history, physical exam and plan: Yes Notes (Text): This is late computer entry for 05/17/18. Patient seen, examined and case discussed with day-time resident. Patient seen this morning NGT tube in placed. Patient was evaluated by surgery team, NGT discontinued by surgery. Diet advanced by surgery. Assessment and Plan (1) Small bowel obstruction Assessment & Plan: * Surgical consult, Dr. Pulliam (Not Dr. Esparza) help appreciated * Management as per recommendation: NGT removed, Advance diet to regular, Clear for DC once tolerating PO diet * CT abdomen/Pelvis: Partial SBO, please refer to the EMR for complete impression * Abdominal X-ray: No evidence of mechanical bowel obstruction * Continue to monitor for BM and Flatus Medication: * Zofran 4mg IV Q6H PRN for nausea Status: Acute (2) Diabetes, Controlled Assessment & Plan: * HbgA1C: 6.2 * Home medication Metformin 1,000mg PO daily - hold * ISS low dose * Accuchecks * Hypoglycemia protocol Status: Chronic (3) Hyperlipidemia Assessment & Plan: * Lipid panel: TGL: 142, Chol: 180, LDL: 85 and HDL: 39 Status: Chronic (4) Prophylactic measure Assessment & Plan: * DVT: SCDs * GI: Protonix 40mg IV Q12H
[2018-05-18] MEDS: Lactated Ringer's 1,000 ML IV SCH ×2 (02:06→12:58)
[2018-05-18 06:46] LABS: BASO % 0.3 % (0.0-2.0); EOS # 0.1 K/uL (0.0-0.7); EOS % 1.2 % (0.0-4.0); HEMOGLOBIN 11.2 g/dL (11.0-16.0); LYMPH # 2.5 K/uL (1.0-4.3); LYMPH % 45.7 % (20.0-40.0); MEAN CELL VOLUME 83.2 fL (81.0-99.0); MEAN CORPUSCULAR HEMOGLOBIN 27.2 pg (27.0-31.0); MEAN CORPUSCULAR HGB CONC 32.7 g/dL (33.0-37.0); MEAN PLATELET VOLUME 10.5 fL (7.2-11.7); MONO # 0.4 K/uL (0.0-0.8); MONO % 7.8 % (0.0-10.0); NEUT # 2.4 K/uL (1.8-7.0); RBC 4.13 Mil/uL (3.80-5.20); RED CELL DISTRIBUTION WIDTH 15.1 % (11.5-14.5); WHITE BLOOD COUNT 5.4 K/uL (4.8-10.8)
[2018-05-18 07:35] LABS: ALB/GLOB RATIO 1.1 (1.0-2.1); ALBUMIN 3.4 g/dL (3.5-5.0); ALT/SGPT 28 U/L (9-52); AST/SGOT 24 U/L (14-36); BLOOD UREA NITROGEN 12 mg/dL (7-17); CALCIUM 8.5 mg/dl (8.6-10.4); GFR AFRICAN-AMERICAN > 60; GFR NON-AFRICAN AMERICAN > 60
[2018-05-18] MEDS: (Novolin R) Insulin Human Regular 100 units/ml vial SC SCH ×2 (08:07→12:35)
[2018-05-18 08:35] VITALS: BP 102/66; PULSE 68; TEMP 98; O2SAT 100
--- NOTE | 2018-05-18 11:09 | CP.PCM.DIS ---
<Blanca Escobar E - Last Filed: 05/18/18 10:59> Provider - Provider Date of Admission: 05/17/18 05:17 Attending physician: Radha Barclay DO Time Spent in preparation of Discharge (in minutes): 45 Diagnosis - Discharge Diagnosis (1) Small bowel obstruction Status: Acute (2) Glucose intolerance (impaired glucose tolerance) Status: Chronic (3) Hyperlipidemia Status: Chronic (4) Prophylactic measure Status: Acute Hospital Course - Lab Results Lab Results: Most Recent Lab Values WBC 5.4 K/uL (4.8-10.8) D 05/18/18 06:29 RBC 4.13 Mil/uL (3.80-5.20) 05/18/18 06:29 Hgb 11.2 g/dL (11.0-16.0) 05/18/18 06:29 Hct 34.4 % (34.0-47.0) 05/18/18 06:29 MCV 83.2 fL (81.0-99.0) 05/18/18 06:29 MCH 27.2 pg (27.0-31.0) 05/18/18 06:29 MCHC 32.7 g/dL (33.0-37.0) L 05/18/18 06:29 RDW 15.1 % (11.5-14.5) H 05/18/18 06:29 Plt Count 181 K/uL (130-400) 05/18/18 06:29 MPV 10.5 fL (7.2-11.7) 05/18/18 06: Neut % (Auto) 45.0 % (50.0-75.0) L 05/18/18 06:29 Lymph % (Auto) 45.7 % (20.0-40.0) H 05/18/18 06:29 [place] % (Auto) 7.8 % (0.0-10.0) 05/18/18 06:29 Eos % (Auto) 1.2 % (0.0-4.0) 05/18/18 06:29 Baso % (Auto) 0.3 % (0.0-2.0) 05/18/18 06:29 Neut # (Auto) 2.4 K/uL (1.8-7.0) 05/18/18 06:29 Lymph # (Auto) 2.5 K/uL (1.0-4.3) 05/18/18 06:29 [place] # (Auto) 0.4 K/uL (0.0-0.8) 05/18/18 06:29 Eos # (Auto) 0.1 K/uL (0.0-0.7) 05/18/18 06:29 Baso # (Auto) 0.0 K/uL (0.0-0.2) 05/18/18 06:29 Sodium 140 mmol/L (132-148) 05/18/18 06:29 Potassium 4.1 mmol/L (3.6-5.2) 05/18/18 06: Chloride 107 mmol/L (98-107) 05/18/18 06:29 Carbon Dioxide 25 mmol/L (22-30) 05/18/18 06:29 Anion Gap 12 (10-20) 05/18/18 06:29 BUN 12 mg/dL (7-17) 05/18/18 06:29 Creatinine 0.9 mg/dL (0.7-1.2) 05/18/18 06:29 Est GFR ( Amer) > 60 05/18/18 06:29 Est GFR (Non-Af Amer) > 60 05/18/18 06:29 POC Glucose (mg/dL) 82 mg/dL (65-110) 05/18/18 06:18 Random Glucose 95 mg/dL (65-105) 05/18/18 06:29 Hemoglobin A1c 6.2 % (4.2-6.5) 05/17/18 09:27 Calcium 8.5 mg/dl (8.6-10.4) L 05/18/18 06:29 Phosphorus 3.8 mg/dL (2.5-4.5) 05/18/18 06:29 Magnesium 2.1 mg/dL (1.6-2.3) 05/18/18 06:29 Total Bilirubin 0.5 mg/dL (0.2-1.3) 05/18/18 06:29 AST 24 U/L (14-36) 05/18/18 06:29 ALT 28 U/L (9-52) 05/18/18 06:29 Alkaline Phosphatase 61 U/L (38-126) 05/18/18 06:29 Total Protein 6.3 g/dL (6.3-8.3) 05/18/18 06:29 Albumin 3.4 g/dL (3.5-5.0) L D 05/18/18 06:29 Globulin 3.0 gm/dL (2.2-3.9) 05/18/18 06:29 Albumin/Globulin Ratio 1.1 (1.0-2.1) 05/18/18 06:29 Triglycerides 142 mg/dL (0-149) 05/17/18 01:17 Cholesterol 180 mg/dL (0-199) 05/17/18 01:17 LDL Cholesterol Direct 85 mg/dL (0-129) 05/17/18 01:17 HDL Cholesterol 39 mg/dL (30-70) 05/17/18 01:17 Lipase 104 U/L (23-300) 05/17/18 01:17 Urine Color Yellow (YELLOW) 05/17/18 01:30 Urine Clarity Clear (Clear) 05/17/18 01:30 Urine pH 5.0 (5.0-8.0) 05/17/18 01:30 Ur Specific [place] 1.023 (1.003-1.030) 05/17/18 01:30 Urine Protein Negative mg/dL (NEGATIVE) 05/17/18 01:30 Urine Glucose (UA) Normal mg/dL (Normal) 05/17/18 01:30 Urine Ketones Negative mg/dL (NEGATIVE) 05/17/18 01:30 Urine Blood Negative (NEGATIVE) 05/17/18 01:30 Urine Nitrate Negative (NEGATIVE) 05/17/18 01:30 Urine Bilirubin Negative (NEGATIVE) 05/17/18 01:30 Urine Urobilinogen Normal mg/dL (0.2-1.0) 05/17/18 01:30 Ur Leukocyte Esterase Neg Penny/uL (Negative) 05/17/18 01:30 Urine WBC (Auto) < 1 /hpf (0-5) 05/17/18 01:30 Urine RBC (Auto) < 1 /hpf (0-3) 05/17/18 01:30 Ur Squamous Epith Cells 1 /hpf (0-5) 05/17/18 01:30 Urine HCG, Qual Negative (NEGATIVE) 05/17/18 07:25 - Hospital Course Hospital Course: HPI (As per admission): 47 year old female with past medical history of pre-diabetes and HLD presents to the ER for lower abdominal pain. She states the pain started yesterday around 8pm while she was cleaning her bathroom. She stated the pain felt like a cramping pain which would come and go. She states she drank water with lemon and a tablet of penicillin hoping the pain would go away. She states when the pain would not leave and became more severe she decided to come to the ER which she was brought in by her . Patient states she had about 4 small episodes of diarrhea yesterday evening the last one being at 11pm. She states the stool was liquid and yellow/green in color and very small amounts. She states the last time she ate anything was yesterday around 3:45pm which was rice /avocado/broccoli. She states she has never had pain like this before. Patient states she is belching but is not passing flatus. She denies nausea, vomiting, chills, fever, shortness of breath or chest pain. Patient states she has had a colonoscopy in the past about 10 years ago due to constipation and external hemorrhoids were found otherwise colonoscopy was normal per patient. Hospital Course: Patient was admitted with consideration of small bowel obstruction based on clinical presentation and early distal SBO noted on CT abdomen. While in the ED , NGT was placed with an output of 300cc. General Surgery, Dr. Pulliam was consulted, who ordered an abdominal X-ray, which showed no evidence of mechanical small bowel obstruction, NGT was placed and patient was advanced to regular diet. Patient tolerated regular diet well and continued to belch and passing flatus. On the day of discharge, patient admitted to bowel movement. Patient did complain of symptom of known hemorrhoid and patient will follow up with her primary care physician for possible GI referral. Patient was cleared by medical team and discharge home with appropriate discharge instructions. Pertinent imaging CT abdomen/Pelvis (05/17/18): Nonspecific small bowel pattern with gradually diminishing caliber of distal small bowel. Small bowel obstruction is not definitively shown. [facility] preliminary interpretation (05/17/2018) suggests potentially early distal small bowel obstruction, however, then follow-up abdomen radiograph for abdomen pelvis CT can be performed to better evaluate transit of distal small bowel oral contrast. A definitive transition point in caliber of small bowel is not identified although the transition from opacify to under opacified small bowel is appreciated but is gradual. Please see V rad preliminary interpretation also stored in PACs. Prior hysterectomy suggested. Clinically correlate. Diastasis of inferior abdominus rectus musculature. Abdominal X-ray (05/17/18): No evidence of mechanical bowel obstruction. This is a brief summary of events. For a complete course, please refer to the medical record Discharge Exam - Head Exam Head Exam: ATRAUMATIC, NORMAL INSPECTION - Eye Exam Eye Exam: EOMI, Normal appearance - ENT Exam ENT Exam: Mucous Membranes Moist - Respiratory Exam Respiratory Exam: Clear to PA & Lateral, NORMAL BREATHING PATTERN. absent: Chest Wall Tenderness, Decreased Breath Sounds, Prolonged Expiratory Phase, Rales, Wheezes, Respiratory Distress - Cardiovascular Exam Cardiovascular Exam: REGULAR RHYTHM, +S1, +S2. absent: Systolic Murmur - GI/Abdominal Exam GI & Abdominal Exam: Normal Bowel Sounds, Soft. absent: Diminished Bowel Sounds , Distended, Hyperactive Bowel Sounds, Organomegaly, Pulsatile Mass, Tenderness - Rectal Exam Additional comments: Healed lower transverse scar - Extremities Exam Extremities exam: normal inspection - Neurological Exam Neurological exam: Alert, Normal Gait, Oriented x3 - Psychiatric Exam Psychiatric exam: Normal Affect - Skin Skin Exam: Normal Color Discharge Plan - Follow Up Plan Condition: STABLE Disposition: HOME/ ROUTINE Instructions: Small Bowel Obstruction (DC), Prediabetes (DC), Acute Abdominal Pain (DC) Additional Instructions: Please discharge patient home Please continue to drink prune juice at home in order to achieve more consistent bowel movement Please increase your water and fiber intake Please follow up with your primary care physician, Dr. Ranulfo Ernst in [place] within a week of discharge Please address symptom of hemorrhoids with your primary care physician, Dr. Ranulfo Ernst for possible GI referral Please return to the hospital if symptoms resumes or worsens Please take care <Radha Barclay V - Last Filed: 05/18/18 22:16> Provider - Provider Date of Admission: 05/17/18 05:17 Attending physician: Radha Barclay, Hospital Course - Lab Results Lab Results: Most Recent Lab Values WBC 5.4 K/uL (4.8-10.8) D 05/18/18 06:29 RBC 4.13 Mil/uL (3.80-5.20) 05/18/18 06:29 Hgb 11.2 g/dL (11.0-16.0) 05/18/18 06: Hct 34.4 % (34.0-47.0) 05/18/18 06: MCV 83.2 fL (81.0-99.0) 05/18/18 06: MCH 27.2 pg (27.0-31.0) 05/18/18 06: MCHC 32.7 g/dL (33.0-37.0) L 05/18/18: RDW 15.1 % (11.5-14.5) H 05/18/18 06:29 Plt Count 181 K/uL (130-400) 05/18/18: MPV 10.5 fL (7.2-11.7) 05/18/18: Neut % (Auto) 45.0 % (50.0-75.0) L 05/18/18: Lymph % (Auto) 45.7 % (20.0-40.0) H 05/18/18: [place] % (Auto) 7.8 % (0.0-10.0) 05/18/18: Eos % (Auto) 1.2 % (0.0-4.0) 05/18/18: Baso % (Auto) 0.3 % (0.0-2.0) 05/18/18: Neut # (Auto) 2.4 K/uL (1.8-7.0) 05/18/18: Lymph # (Auto) 2.5 K/uL (1.0-4.3) 05/18/18: [place] # (Auto) 0.4 K/uL (0.0-0.8) 05/18/18: Eos # (Auto) 0.1 K/uL (0.0-0.7) 05/18/18: Baso # (Auto) 0.0 K/uL (0.0-0.2) 05/18/18 06: Sodium 140 mmol/L (132-148) 05/18/18: Potassium 4.1 mmol/L (3.6-5.2) 05/18/18: Chloride 107 mmol/L (98-107) 05/18/18 06:29 Carbon Dioxide 25 mmol/L (22-30) 05/18/18 06:29 Anion Gap 12 (10-20) 05/18/18 06:29 BUN 12 mg/dL (7-17) 05/18/18 06:29 Creatinine 0.9 mg/dL (0.7-1.2) 05/18/18 06:29 Est GFR ( Amer) > 60 05/18/18 06:29 Est GFR (Non-Af Amer) > 60 05/18/18 06:29 POC Glucose (mg/dL) 110 mg/dL (65-110) 05/18/18 11:03 Random Glucose 95 mg/dL (65-105) 05/18/18 06:29 Hemoglobin A1c 6.2 % (4.2-6.5) 05/17/18 09:27 Calcium 8.5 mg/dl (8.6-10.4) L 05/18/18 06:29 Phosphorus 3.8 mg/dL (2.5-4.5) 05/18/18 06:29 Magnesium 2.1 mg/dL (1.6-2.3) 05/18/18 06:29 Total Bilirubin 0.5 mg/dL (0.2-1.3) 05/18/18 06:29 AST 24 U/L (14-36) 05/18/18 06:29 ALT 28 U/L (9-52) 05/18/18 06:29 Alkaline Phosphatase 61 U/L (38-126) 05/18/18 06:29 Total Protein 6.3 g/dL (6.3-8.3) 05/18/18 06:29 Albumin 3.4 g/dL (3.5-5.0) L D 05/18/18 06:29 Globulin 3.0 gm/dL (2.2-3.9) 05/18/18 06:29 Albumin/Globulin Ratio 1.1 (1.0-2.1) 05/18/18 06:29 Triglycerides 142 mg/dL (0-149) 05/17/18 01:17 Cholesterol 180 mg/dL (0-199) 05/17/18 01:17 LDL Cholesterol Direct 85 mg/dL (0-129) 05/17/18 01:17 HDL Cholesterol 39 mg/dL (30-70) 05/17/18 01:17 Lipase 104 U/L (23-300) 05/17/18 01:17 Urine Color Yellow (YELLOW) 05/17/18 01:30 Urine Clarity Clear (Clear) 05/17/18 01:30 Urine pH 5.0 (5.0-8.0) 05/17/18 01:30 Ur Specific [place] 1.023 (1.003-1.030) 05/17/18 01:30 Urine Protein Negative mg/dL (NEGATIVE) 05/17/18 01:30 Urine Glucose (UA) Normal mg/dL (Normal) 05/17/18 01:30 Urine Ketones Negative mg/dL (NEGATIVE) 05/17/18 01:30 Urine Blood Negative (NEGATIVE) 05/17/18 01:30 Urine Nitrate Negative (NEGATIVE) 05/17/18 01:30 Urine Bilirubin Negative (NEGATIVE) 05/17/18 01:30 Urine Urobilinogen Normal mg/dL (0.2-1.0) 05/17/18 01:30 Ur Leukocyte Esterase Neg Penny/uL (Negative) 05/17/18 01:30 Urine WBC (Auto) < 1 /hpf (0-5) 05/17/18 01:30 Urine RBC (Auto) < 1 /hpf (0-3) 05/17/18 01:30 Ur Squamous Epith Cells 1 /hpf (0-5) 05/17/18 01:30 Urine HCG, Qual Negative (NEGATIVE) 05/17/18 07:25 Attending/Attestation - Attestation I have personally seen and examined this patient.: Yes I have fully participated in the care of the patient.: Yes I have reviewed all pertinent clinical information, including history, physical exam and plan: Yes Notes (Text): Patient seen, examined and case discussed day-time resident. Patient seen this morning with the resident. She reports she is having both flatus and bowel movement. Patient tolerated regular diet. Patient advised to increased hydration. Patient increase fiber intake to prevent constipation. Patient reports she has mild hemmrhoid pain when she strains denies BRBPR. patient recommended to f/u GI for possible GI evaluation following hospitalization with her PMD. No new medications upon discharge. This is a summary of patient's hospital stay. Please refer to EMR for full body of record. Discharge Diagnoses (1) Small bowel obstruction Assessment & Plan: * Surgical consult, Dr. Pulliam (Not Dr. Esparza) help appreciated * Management as per recommendation: NGT removed, Advance diet to regular, Clear for DC once tolerating PO diet * CT abdomen/Pelvis: Partial SBO, please refer to the EMR for complete impression * Abdominal X-ray: No evidence of mechanical bowel obstruction * Day of discharge, patient has had flatus, bowel movement, and tolerating regular diet. Medication: * Zofran 4mg IV Q6H PRN for nausea Status: Acute (2) Diabetes, Controlled Assessment & Plan: * HbgA1C: 6.2 * Home medication Metformin 1,000mg PO daily-->Resumed * ISS low dose * Accuchecks * Hypoglycemia protocol Status: Chronic (3) Hyperlipidemia Assessment & Plan: * Lipid panel: TGL: 142, Chol: 180, LDL: 85 and HDL: 39 Status: Chronic (4) Prophylactic measure Assessment & Plan: * DVT: SCDs * GI: Protonix 40mg IV Q12H
[2018-05-20] MEDS ORDERED: Pneumococcal 23-Valent Vaccine IM ONE ×2 (07:06→10:00)
== END 2018-05-18 15:15 | disposition home or self-care (01) | DRG 181 ==
LOC: C.ER 00:15 → C.9E 05:17 → C.6T 05:39
PROVIDERS: ADMIT Hospitalist; ATTEND Hospitalist
DX: K56.609 Unspecified intestinal obstruction, unspecified as to partial versus complete obstruction (principal); K52.9 Noninfective gastroenteritis and colitis, unspecified; E11.9 Type 2 diabetes mellitus without complications; E78.5 Hyperlipidemia, unspecified; E78.00 Pure hypercholesterolemia, unspecified; K64.9 Unspecified hemorrhoids; Z90.710 Acquired absence of both cervix and uterus; Z98.891 History of uterine scar from previous surgery; Z83.3 Family history of diabetes mellitus

== ENCOUNTER 2018-12-19 02:56 | Emergency (ER) | payer BC, MEDICAID, OTHER ==
[2018-12-19 02:56] VITALS: BMI 35.2
[2018-12-19 03:17] VITALS: O2SAT 98
[2018-12-19] MEDS ORDERED: Sodium Chloride 0.9% 1,000 ML IV ONE (03:21)
[2018-12-19 03:24] LABS: HCG,QUALITATIVE URINE NEGATIVE (NEGATIVE)
[2018-12-19 03:26] LABS: SQUAMOUS EPITHIAL 8 /hpf (0-5); URINE BACTERIA RARE (<OCC); URINE BILIRUBIN NEGATIVE (NEGATIVE); URINE BLOOD NEGATIVE (NEGATIVE); URINE CLARITY Hazy (Clear); URINE COLOR Yellow (YELLOW); URINE GLUCOSE (UA) NORMAL (Normal); URINE LEUKOCYTE ESTERASE NEG Leu/uL (Negative); URINE PROTEIN NEGATIVE (NEGATIVE); URINE UROBILINOGEN NORMAL mg/dL (0.2-1.0)
[2018-12-19] MEDS ORDERED: Morphine 4 MG/ML VIAL ONE (03:31)
[2018-12-19] MEDS ORDERED: Sodium Chloride 0.9% 1,000 ML ONE (03:31)
--- NOTE | 2018-12-19 03:34 | C.PDOC ---
History Of Present Illness 48 year old female presents to the ER with a complaint of diffuse abdominal pain and diarrhea that started at 0000. Patient admits to nausea; denies vomiting, dysuria, or fever. She PMHx of small bowel obstruction, two c sections, and hysterectomy. Time Seen by Provider: 12/19/18 02:58 Chief Complaint (Nursing): Abdominal Pain History Per: Patient History/Exam Limitations: no limitations Onset/Duration Of Symptoms: Hrs Current Symptoms Are (Timing): Still Present Location Of Pain/Discomfort: Diffuse Quality Of Discomfort: Unable To Describe Associated Symptoms: Nausea, Diarrhea. denies: Fever, Vomiting, Other (Dysuria) Exacerbating Factors: None Alleviating Factors: None Recent travel outside of the [place]: No Abnormal Vaginal Bleeding: No Past Medical History Reviewed: Historical Data, Nursing Documentation, Vital Signs Vital Signs: Last Vital Signs Temp 98.5 F 12/19/18 03:03 Pulse 98 H 12/19/18 03:03 Resp 14 12/19/18 03:03 BP 139/79 12/19/18 03:03 Pulse Ox 98 12/19/18 03:03 - Medical History PMH: Hypercholesterolemia, Migraine, Obstructive Bowel Denies: Chronic Kidney Disease Surgical History: Other Surgeries: Hysterectomy - [facility] Procedures PERCUTAN NEEDLE BIOPSY OF BREAST (04/11/14) Family History: States: Unknown Family Hx - Social History Hx Tobacco Use: No Hx Alcohol Use: No Hx Substance Use: No - Immunization History Hx Tetanus Toxoid Vaccination: Yes Hx Influenza Vaccination: Yes Hx Pneumococcal Vaccination: No Review Of Systems Except As Marked, All Systems Reviewed And Found Negative. Gastrointestinal: Positive for: Nausea, Abdominal Pain, Diarrhea Physical Exam - Physical Exam Appears: Non-toxic, Other (In mild pain) Skin: Normal Color, Warm, Dry Head: Atraumatic, Normacephalic Eye(s): bilateral: Normal Inspection Oral Mucosa: Moist Neck: Normal, Supple Chest: Symmetrical, No Tenderness Cardiovascular: Rhythm Regular Respiratory: Normal Breath Sounds, No Rales, No Rhonchi, No Wheezing Gastrointestinal/Abdominal: Bowel Sounds (Active), Soft, Tenderness (Periumbilical), No Guarding, No Rebound Back: No CVA Tenderness Neurological/Psych: Oriented x3, Normal Speech ED Course And Treatment - Laboratory Results Result Diagrams: 12/19/18 03:45 12/19/18 03:45 Lab Results: Urine Color Yellow (YELLOW) 12/19/18 03:19 Urine Clarity Hazy (Clear) 12/19/18 03:19 Urine pH 5.0 (5.0-8.0) 12/19/18 03:19 Ur Specific [place] 1.024 (1.003-1.030) 12/19/18 03:19 Urine Protein Negative mg/dL (NEGATIVE) 12/19/18 03:19 Urine Glucose (UA) Normal mg/dL (Normal) 12/19/18 03:19 Urine Ketones Negative mg/dL (NEGATIVE) 12/19/18 03:19 Urine Blood Negative (NEGATIVE) 12/19/18 03:19 Urine Nitrate Negative (NEGATIVE) 12/19/18 03:19 Urine Bilirubin Negative (NEGATIVE) 12/19/18 03:19 Urine Urobilinogen Normal mg/dL (0.2-1.0) 12/19/18 03:19 Ur Leukocyte Esterase Neg Penny/uL (Negative) 12/19/18 03:19 Urine WBC (Auto) 1 /hpf (0-5) 12/19/18 03:19 Urine RBC (Auto) 1 /hpf (0-3) 12/19/18 03:19 Ur Squamous Epith Cells 8 /hpf (0-5) H 12/19/18 03:19 Urine Bacteria Rare (<OCC) 12/19/18 03:19 Urine HCG, Qual Negative (NEGATIVE) 12/19/18 03:19 Urine HCG, Qual Negative (NEGATIVE) 12/19/18 03:19 O2 Sat by Pulse Oximetry: 98 (Room air) Pulse Ox Interpretation: Normal - CT Scan/US CT ABD/PELVIS Other Rad Studies (CT/US): Read By Radiologist, Radiology Report Reviewed CT/US Interpretation: Name:JOSE ALFREDO ALTAMIRANO Exam Date:Dec 19, 2018 6:22:50 AM EST. Modality Type:CT\SR. Description:CT - ABDOMEN AND PELVIS WITH CORONAL AND SAGITTAL MPRS. Gender:F Laterality:Not applicable. :66 Referring Physician:JOSSIE CONTRERAS MD. EXAM: CT Abdomen without IV contrast. CLINICAL HISTORY: Air fluid level. TECHNIQUE: Axial computed tomography images of the abdomen and pelvis without intravenous contrast. 1134.10 mGy-cm. CONTRAST: Without. COMPARISON: 05/17. FINDINGS: LUNG BASES: The lung bases appear clear. No pleural effusions are seen. LIVER: Unremarkable. GALLBLADDER AND BILE DUCTS: The gallbladder appears within normal limits. No radioopaque gallstones are seen. No biliary ductal dilatation is evident. PANCREAS: Unremarkable. SPLEEN: Unremarkable. ADRENAL GLANDS: Unremarkable. KIDNEYS, URETERS, AND BLADDER: The kidneys appear within normal limits. There is no hydronephrosis or hydroureter. No urinary calculi are seen. STOMACH AND BOWEL: There are a few distended small bowel loops, particularly in the right lower quadrant, containing fluid. No dilated loops of bowel. Otherwise, unremarkable appearance of the stomach and bowel. No evidence of bowel obstruction. No evidence suggesting enteritis or colitis. APPENDIX: No evidence of acute appendicitis on CT examination. PERITONEUM: No free fluid. No free air. LYMPH NODES: No lymphadenopathy is evident. VASCULATURE: No evidence of abdominal aortic aneurysm. BONES: No aggressive appearing osseous lesion. No acute osseous pathology evident. IMPRESSION: Fluid filled and distended small bowel loops in the right lower quadrant. No additional acute abnormality. . Electronically signed on Dec 19, 2018 6:51:15 AM EST by: Tran Chawla M.D., Certified by [facility], Diagnostic Radiology. Progress Note: Blood work, urinalysis, and obstructive series ordered. IV fluids, morphine, and zofran administered. Disposition Counseled Patient/Family Regarding: Studies Performed, Diagnosis, Need For Followup, Rx Given - Disposition Referrals: [facility] [Outside] Disposition: HOME/ ROUTINE Disposition Time: 06:55 Condition: STABLE Additional Instructions: FOLLOW UP WITH YOUR DOCTOR/CLINIC IN 1-2 DAYS DRINK PLENTY OF FLUIDS USE MEDICATIONS NEEDED RETURN TO EMERGENCY ROOM IF YOUR SYMPTOMS BECOME WORSE SEGUIR CON LUNDBERG MDICO / CLNICA EN 1-2 SEQUEIRA BEBER MUCHO LQUIDO UTILICE MEDICAMENTOS KHAI SE NECESITE VUELVA A LA TERE DE EMERGENCIA SI ALEKS SNTOMAS SE HACEN PEOR Prescriptions: Dicyclomine [Bentyl] 20 mg PO Q6 PRN #15 tab PRN Reason: ABDOMINAL CRAMPING Naproxen 375 mg PO BID PRN #20 tablet PRN Reason: pain Instructions: Acute Abdomen (Belly Pain), Adult (DC), Diarrhea and Traveler's Diarrhea, Adult (DC) Forms: [employer] (Khmer) Print Language: ALGERIAN - Clinical Impression Clinical Impression: Abdominal pain, Diarrhea - Scribe Statement The provider has reviewed the documentation as recorded by the Scribyaima Aguilar All medical record entries made by the Kelleeibe were at my direction and personally dictated by me. I have reviewed the chart and agree that the record accurately reflects my personal performance of the history, physical exam, medical decision making, and the department course for this patient. I have also personally directed, reviewed, and agree with the discharge instructions and disposition.
[2018-12-19 03:48] LABS: BASO % 0.4 % (0.0-2.0); EOS % 0.3 % (0.0-4.0); HEMOGLOBIN 13.2 g/dL (11.0-16.0); LYMPH # 1.5 K/uL (1.0-4.3); LYMPH % 13.9 % (20.0-40.0); MEAN CELL VOLUME 83.7 fL (81.0-99.0); MEAN CORPUSCULAR HEMOGLOBIN 26.8 pg (27.0-31.0); MEAN CORPUSCULAR HGB CONC 32.1 g/dL (33.0-37.0); MEAN PLATELET VOLUME 10.4 fL (7.2-11.7); MONO # 0.5 K/uL (0.0-0.8); MONO % 4.7 % (0.0-10.0); NEUT # 8.9 K/uL (1.8-7.0); NEUT % 80.7 % (50.0-75.0); NRBC % 0.1 % (0.0-2.0); RBC 4.92 Mil/uL (3.80-5.20)
[2018-12-19 04:13] LABS: ALB/GLOB RATIO 1.4 (1.0-2.1); ALBUMIN 4.8 g/dL (3.5-5.0); ALT/SGPT 22 U/L (9-52); AST/SGOT 22 U/L (14-36); BLOOD UREA NITROGEN 15 mg/dL (7-17); CALCIUM 9.5 mg/dl (8.6-10.4); GFR NON-AFRICAN AMERICAN > 60; LIPASE 112 U/L (23-300)
[2018-12-19] MEDS ORDERED: Iohexol 240 (50 ml) PO STA (04:45)
[2018-12-19] MEDS ORDERED: Iohexol 240 (50 ml) ONE (05:01)
[2018-12-19 07:10] VITALS: BP 112/82; PULSE 72; RESP 20; TEMP 97.3
--- NOTE | 2018-12-19 08:35 | RAD ---
Date of service: 12/19/2018 PROCEDURE: Radiographs of the chest and abdomen (obstructive series) HISTORY: abd pain, h/o SBO COMPARISON: No prior. TECHNIQUE: AP radiograph of the chest, with upright and supine radiographs of the abdomen. FINDINGS: CHEST: Lungs: Clear. Cardiovascular: Normal size heart. No pulmonary vascular congestion. No aortic atherosclerotic calcification present Pleura: No pleural fluid. No pneumothorax. Other findings: None. ABDOMEN AND PELVIS: Bowel: There are air fluid levels in the central and right sided mid abdominal level likely within small bowel loops and/or:. Actual valvulae versus haustral markings are difficult to discern. No dilated loops to suggest obstruction are noted. However a partial obstruction and/or enteritis/diarrhea as well as extreme normal variants can also result in this pattern. Paucity of large bowel gas and stool is noted. Free air: None. Bones: Inferior lumbar spine spondylosis and mild facet hypertrophic arthrosis. Other findings: None. IMPRESSION: No pulmonary infiltrate. No definitive bowel obstruction or free air seen. Nonspecific air-fluid levels in bowel loops (probably mostly small bowel loops) are favored. A partial small-bowel obstruction is 1 consideration. An enteritis and/or extreme normal variant is another. Clinical correlation with patient's presentation follow-up is advised.
--- NOTE | 2018-12-19 09:29 | CT ---
CT abdomen and pelvis HISTORY: Air-fluid levels. Evaluate for small bowel obstruction. COMPARISON: None available. TECHNIQUE: Multiple contiguous axial images were performed through the abdomen and pelvis without the use of intravenous contrast. Subsequently, sagittal and coronal reformatted images were obtained. This CT exam was performed using one or more of the following dose reduction techniques: Automated exposure control, adjustment of the mA and/or kV according to patient size, and/or use of iterative reconstruction technique. Findings: Scattered atelectasis at the lung bases. No pleural or pericardial effusion. Perihepatic ascites. Mild heterogeneity within the periphery of the medial right hepatic lobe. Liver is otherwise grossly preserved. Gallbladder is preserved. Spleen is preserved. Adrenal glands are preserved. Pancreas is preserved. Gastric distension. Multiple distended/dilated loops of small bowel seen within the mid to lower midline to right vic abdomen with associated adjacent mesenteric fluid and fat stranding. Relative transition point within the right lower abdomen. These findings may represent a developing and/or partial small bowel obstruction. Clinical correlation. Right kidney: No calculi or hydronephrosis. Left Kidney: No calculi or hydronephrosis. Urinary bladder is preserved. Fluid-filled and under distended colon which may represent diarrheal illness. Appendix is within normal limits. Few shotty para-aortic and inguinal lymph nodes. Few shotty mesenteric lymph nodes. Degenerative changes in the spine. Impression: Multiple distended/dilated loops of small bowel seen within the mid to lower midline to right vic abdomen with associated adjacent mesenteric fluid and fat stranding. Relative transition point within the right lower abdomen. These findings may represent a developing and/or partial small bowel obstruction. Clinical correlation. Fluid-filled and under distended colon which may represent diarrheal illness. Perihepatic ascites. A preliminary report was generated at 6:57 a.m. on 12/19/[address] Tran Chawla from [employer].
== END 2018-12-19 07:05 | disposition home or self-care (01) ==
LOC: C.ER 02:56
DX: R10.33 Periumbilical pain (principal); R19.7 Diarrhea, unspecified
CPT/HCPCS: 74022; 74176; 80053; 81001; 83690; 84703; 85025; 96361; 96374; 96375; 99285; J2270; J2405; J7030; Q9966